=== PATIENT | male | born 1955 | race Caucasian/White ===

== ENCOUNTER 2023-07-31 06:35 | Inpatient (IN) | payer MEDICARE, BC ==
[2023-07-29 16:41] LABS: BILIRUBIN,URINE NEGATIVE (Neg); CLARITY,URINE CLEAR (Clear); COLOR,URINE YELLOW (Yellow); GLUCOSE, URINE NEGATIVE (Neg); KETONES,URINE NEGATIVE (Neg); LEUKOCYTE ESTERASE ,URINE NEGATIVE (Neg); NITRITES, URINE NEGATIVE (Neg); OCCULT BLOOD,URINE NEGATIVE (Neg); PH,URINE 5.5 (4.8-8.0); PROTEIN,URINE NEGATIVE (Neg); UROBILINOGEN,URINE 0.2 E.U/dL (0.2-1.0)
[2023-07-29 16:47] LABS: BASOPHILS % (AUTO) 0.5 % (0-1); EOSINOPHILS # (AUTO) 0.2 X10'3 (0-0.9); LYMPHOCYTES # (AUTO) 1.2 X10'3 (1.1-4.8); LYMPHOCYTES % (AUTO) 16.6 % (21-51); MEAN CORPUSCULAR HEMOGLOBIN 29.3 PG (27.0-31.0); MEAN CORPUSCULAR HGB CONC 33.5 g/dL (33.0-36.5); MEAN CORPUSCULAR VOLUME 87.6 FL (78-98); MEAN PLATELET VOLUME 7.5 FL (7.4-10.4); MONOCYTES # (AUTO) 0.6 X10'3 (0-0.9); MONOCYTES % (AUTO) 8.1 % (2-12); NEUTROPHILS % (AUTO) 71.8 % (42-75); PRE OP HEMATOCRIT 50.3 % (42.0-52.0); PRE OP HEMOGLOBIN 16.9 g/dL (14.0-17.9); PRE OP PLATELET COUNT 235 X10'3 (140-440); RED BLOOD COUNT 5.75 X10'6 (4.70-6.10); RED CELL DISTRIBUTION WIDTH 16.5 % (11.5-14.5)
[2023-07-29 16:54] LABS: PRE OP PROTIME 10.6 SECONDS (9.0-12.0)
[2023-07-29 16:56] LABS: ALBUMIN 3.5 G/DL (3.4-5.0); ALKALINE PHOSPHATASE 82 IU/L (46-116); BLOOD UREA NITROGEN 25 MG/DL (7-18); CALCIUM 9.3 MG/DL (8.5-10.1); CHLORIDE 103 MMOL/L (99-107); CREATININE 1.04 MG/DL (0.60-1.10); PRE OP ALT 46 U/L (30-65); PRE OP ANION GAP 8 (8-16); PRE OP AST 24 U/L (10-37); PRE OP BILIRUB, TOTAL 0.6 MG/DL (0.0-1.0); PRE OP GLUCOSE 99 MG/DL (70-104); PRE OP POTASSIUM 3.9 MMOL/L (3.4-5.1); PRE OP SODIUM 141 MMOL/L (135-145); TOTAL CARBON DIOXIDE 30.3 MMOL/L (24-32); TOTAL PROTEIN 7.1 G/DL (6.4-8.2); eGFR 71 ML/MIN
[2023-07-29 16:57] LABS: UA COLLECTION TYPE CLN CATCH MIDSTREAM
[2023-07-31] VITALS (30 sets, daily range): BP systolic 99–153; BP diastolic 67–99; PULSE 58–80; RESP 12–22; TEMP 88.6–98.1; O2SAT 91–99
[~2023-07-31] VITALS: Ht 172.7 cm; Wt 88.9 kg
[~2023-07-31 06:35] MED LIST: APIX5TAB3 PO; ATOR-2 PO; DOCUMENT DATE & TIME OF BETA-BLOCKER PO ONE; LISI1TAB53 PO; SILD50TA PO; SOTA80TA PO; TEST200V33 IM; cefazolin 2gm/D5W 100mL 100 ML IV ONE; famotidine 20mg tablet PO ONE; ondansetron/PF 4mg/2ml inj IV PRN; ringers solution, lacted 1,000 ML IV SCH; vancomycin 1,500 MG in NS 300ml IV soln IV ONE
[2023-07-31] MEDS ORDERED: protamine sulfate 10mg/ml inj. ONE (06:52)
[2023-07-31] MEDS ORDERED: morphine 4 MG/ML inj SYRINge IV PRN (08:40)
[2023-07-31] MEDS ORDERED: meperidine/PF 25mg/ml syringe IV PRN ×3 (08:40)
[2023-07-31] MEDS ORDERED: proCHLORperazine 10 MG/2 ml inj IV PRN ×2 (08:40→10:35)
[2023-07-31] MEDS ORDERED: morphine 2 MG/ML inj. syringe IV PRN (08:40)
[2023-07-31] MEDS ORDERED: ringers solution, lacted 1,000 ML IV SCH (08:40)
[2023-07-31] MEDS ORDERED: ondansetron/PF 4mg/2ml inj IV PRN ×2 (08:40→10:35)
[2023-07-31] MEDS ORDERED: heparin 1,000 UNITS/NS 500ml 1,500 ML ONE (09:27)
[2023-07-31] MEDS ORDERED: iohexol 350 MG/ML 50ML vial IV ONE ×2 (09:27→09:55)
[2023-07-31] MEDS ORDERED: LIDOcaine 1% 30ml preserv. free vial ONE (09:27)
[2023-07-31] MEDS ORDERED: sevoflurane 250ml liquid IH ONE (09:34)
[2023-07-31] MEDS ORDERED: ePHEDrine 50MG/ML INJ. ONE (09:34)
[2023-07-31] MEDS ORDERED: fentaNYL/PF 50MCG/1 ML 2ML syringe ONE (09:38)
[2023-07-31] MEDS ORDERED: midazolam 1 mg/ML 2ml injection ONE (09:39)
[2023-07-31] MEDS ORDERED: propofol inj 20 ML IV ONE (09:41)
[2023-07-31] MEDS ORDERED: rocuronium 10mg/ml inj IV ONE (09:41)
[2023-07-31] MEDS ORDERED: heparin 1,000unit/ml 10ml vial 10 ML ONE (09:54)
[2023-07-31] MEDS ORDERED: ondansetron/PF 4mg/2ml inj ONE (10:31)
[2023-07-31] MEDS ORDERED: dexamethasone sod phosphate 4mg/ml inj. ONE (10:31)
[2023-07-31] MEDS ORDERED: sugammadex 200mg/2ml injection IV ONE (10:32)
[2023-07-31] MEDS ORDERED: potassium Cl 40MEQ/1/2NS 520ml 520 ML IV PRN (10:35)
[2023-07-31] MEDS ORDERED: magnesium 4gm in 100ml NS 100 ML IV PRN (10:35)
[2023-07-31] MEDS ORDERED: magnesium 2GM in 50ml NS 50 ML IV PRN (10:35)
[2023-07-31] MEDS ORDERED: potassium Cl 20 mEq SR tablet PO PRN (10:35)
[2023-07-31] MEDS ORDERED: potassium Cl 40MEQ/270ML bag 250 ML IV PRN (10:35)
[2023-07-31] MEDS ORDERED: potassium Cl 20mEq/100mL bag 100 ML IV PRN (10:35)
[2023-07-31] MEDS ORDERED: normal saline 1000ml 1,000 ML IV SCH (10:35)
[2023-07-31] MEDS ORDERED: acetaminophen 325mg tablet PO PRN (10:35)
[2023-07-31] MEDS ORDERED: potassium CL 10mEq/100ml bag 100 ML IV PRN (10:35)
[2023-07-31] MEDS ORDERED: pantoprazole 40mg Tablet.DR PO PRN (10:35)
[2023-07-31] MEDS ORDERED: hydrALAZINE 20mg/ml inj. IV PRN (10:35)
[2023-07-31] MEDS ORDERED: docusate sod 100mg capsule PO PRN (10:35)
[2023-07-31] MEDS ORDERED: diphenhydrAMINE 25mg capsule PO PRN (10:35)
[2023-07-31] MEDS ORDERED: ALPRAZolam 0.25mg tablet PO PRN (10:35)
[2023-07-31] MEDS ORDERED: labetalol 20mg/4ml (5mg/ml) syringe IV PRN (10:35)
[2023-07-31] MEDS: sotalol HCl 40mg (1/2 tablet) PO SCH (21:04)
[2023-07-31] MEDS: apixaban 5mg tablet PO SCH (21:05)
[2023-07-31] MEDS: sod chloride 0.9% 10ml flush syringe IV SCH (22:52)
[2023-08-01] VITALS (7 sets, daily range): BP systolic 96–153; BP diastolic 54–91; PULSE 63–97; RESP 13–27; TEMP 97.3–98.5; O2SAT 94–99
[2023-08-01] MEDS: sod chloride 0.9% 10ml flush syringe IV SCH ×3 (00:12→15:20)
[2023-08-01 07:11] LABS: BASOPHILS % (AUTO) 0.2 % (0-1); EOSINOPHILS % (AUTO) 0.1 % (0-6); HEMATOCRIT 46.6 % (42.0-52.0); HEMOGLOBIN 15.7 g/dl (14.0-17.9); LYMPHOCYTES # (AUTO) 0.8 X10'3 (1.1-4.8); LYMPHOCYTES % (AUTO) 8.2 % (21-51); MEAN CORPUSCULAR HEMOGLOBIN 29.3 PG (27.0-31.0); MEAN CORPUSCULAR HGB CONC 33.7 g/dL (33.0-36.5); MEAN PLATELET VOLUME 7.6 FL (7.4-10.4); MONOCYTES # (AUTO) 0.6 X10'3 (0-0.9); MONOCYTES % (AUTO) 6.4 % (2-12); NEUTROPHILS # (AUTO) 8.3 X10'3 (1.8-7.7); NEUTROPHILS % (AUTO) 85.1 % (42-75); PLATELET COUNT 200 X10'3 (140-440); RED BLOOD COUNT 5.36 X10'6 (4.70-6.10); RED CELL DISTRIBUTION WIDTH 16.4 % (11.5-14.5); WHITE BLOOD COUNT 9.8 X10'3 (4.5-11.0)
[2023-08-01 07:28] LABS: INR 1.1 INR; PROTHROMBIN TIME 11.3 SECONDS (9.0-12.0)
[2023-08-01 07:52] LABS: ALANINE AMINOTRANSFERASE 33 U/L (12-78); ALBUMIN/GLOBULIN RATIO 0.8 (1.1-1.5); ALKALINE PHOSPHATASE 65 IU/L (46-116); ANION GAP 10 (8-16); ASPARTATE AMINO TRANSFERASE 25 U/L (10-37); BILIRUBIN,TOTAL 0.8 MG/DL (0.1-1.0); BLOOD UREA NITROGEN 28 MG/DL (7-18); BUN/CREATININE RATIO 25.5 (10.0-20.0); CALCIUM 8.8 MG/DL (8.5-10.1); CHLORIDE 102 MMOL/L (99-107); GLUCOSE 139 MG/DL (70-104); MAGNESIUM 1.7 MG/DL (1.5-2.4); PRO BRAIN NATRIURETIC PEPTIDE 335 PG/ML (0-125); SODIUM 137 MMOL/L (135-145); TOTAL PROTEIN 6.7 G/DL (6.4-8.2); eCRCL 60 ML/MIN; eGFR 66 ML/MIN
[2023-08-01] MEDS ORDERED: lisinopril 20mg tablet PO SCH (08:00)
[2023-08-01] MEDS ORDERED: atorvastatin 20mg tablet PO SCH (08:00)
[2023-08-01] MEDS ORDERED: HYDROchlorothiazide 25mg tablet PO SCH (08:00)
[2023-08-01] MEDS: sotalol HCl 40mg (1/2 tablet) PO SCH (08:23)
[2023-08-01] MEDS: apixaban 5mg tablet PO SCH (08:24)
== END 2023-08-01 17:26 | disposition home or self-care (01) | DRG 274 ==
LOC: PAS IN 06:35 → PCU 3S 19:06
PROVIDERS: ADMIT Student in an Organized Health Care Education/Training Program; ATTEND Student in an Organized Health Care Education/Training Program
PROC: B24BZZ4 Ultrasonography of Heart with Aorta, Transesophageal (ICD-10-PCS; 2023-07-31)
PROC: 03HY32Z Insertion of Monitoring Device into Upper Artery, Percutaneous Approach (ICD-10-PCS; 2023-07-31)
PROC: 02L73DK Occlusion of Left Atrial Appendage with Intraluminal Device, Percutaneous Approach (ICD-10-PCS; principal; 2023-07-31 09:34)
DX: I48.0 Paroxysmal atrial fibrillation (principal); Z00.6 Encounter for examination for normal comparison and control in clinical research program; E78.5 Hyperlipidemia, unspecified; I10 Essential (primary) hypertension; Z86.73 Personal history of transient ischemic attack (TIA), and cerebral infarction without residual deficits; Z79.01 Long term (current) use of anticoagulants; Z88.8 Allergy status to other drugs, medicaments and biological substances
CPT/HCPCS: 33340; 36415; 71045; 71046; 76937; 80053; 81003; 82948; 83735; 83880; 85025; 85347; 85610; 85730; 86885; 86900; 86901; 86920; 87081; 93005; 93308; 93312; 93325; A4615; A4618; A6258; A6402; A6449; C1889; C1893; C1894; G0378; J0690; J1100; J1644; J2250; J2405; J2704; J2720; J3010; J3370; J3490; J7030; J7040; J7120; Q9967

== ENCOUNTER 2023-09-23 11:34 | Day surgery (SDC) | payer MEDICARE, BC ==
[~2023-09-23] VITALS: Ht 172.7 cm; Wt 88.7 kg
[2023-09-23] VITALS (14 sets, daily range): BP systolic 97–154; BP diastolic 63–108; PULSE 56–72; RESP 10–17; TEMP 98; O2SAT 95–98
[~2023-09-23 11:34] MED LIST changes: -DOCUMENT DATE & TIME OF BETA-BLOCKER PO ONE; -cefazolin 2gm/D5W 100mL 100 ML IV ONE; -famotidine 20mg tablet PO ONE; -ondansetron/PF 4mg/2ml inj IV PRN; -ringers solution, lacted 1,000 ML IV SCH; -vancomycin 1,500 MG in NS 300ml IV soln IV ONE
[2023-09-23] MEDS ORDERED: CALC-723 PO (12:43)
[2023-09-23] MEDS: fentaNYL/PF 50MCG/1 ML 2ML syringe IV ONE (12:44)
[2023-09-23] MEDS: normal saline 1000ml 1,000 ML IV PRN (12:44)
[2023-09-23] MEDS: MIDAZolam 1mg/ml 10ml vial IV ONE (12:44)
[2023-09-23 12:49] LABS: BASOPHILS # (AUTO) 0.1 X10'3 (0-0.2); BASOPHILS % (AUTO) 0.8 % (0-1); EOSINOPHILS # (AUTO) 0.2 X10'3 (0-0.9); EOSINOPHILS % (AUTO) 2.8 % (0-6); HEMATOCRIT 47.6 % (42.0-52.0); HEMOGLOBIN 15.9 g/dl (14.0-17.9); LYMPHOCYTES # (AUTO) 1.1 X10'3 (1.1-4.8); LYMPHOCYTES % (AUTO) 14.8 % (21-51); MEAN CORPUSCULAR HEMOGLOBIN 31.2 PG (27.0-31.0); MEAN CORPUSCULAR HGB CONC 33.5 g/dL (33.0-36.5); MEAN PLATELET VOLUME 7.8 FL (7.4-10.4); MONOCYTES # (AUTO) 0.7 X10'3 (0-0.9); MONOCYTES % (AUTO) 9.2 % (2-12); NEUTROPHILS # (AUTO) 5.5 X10'3 (1.8-7.7); NEUTROPHILS % (AUTO) 72.4 % (42-75); PLATELET COUNT 224 X10'3 (140-440); RED BLOOD COUNT 5.11 X10'6 (4.70-6.10); RED CELL DISTRIBUTION WIDTH 16.7 % (11.5-14.5); WHITE BLOOD COUNT 7.6 X10'3 (4.5-11.0)
[2023-09-23 12:55] LABS: ANION GAP 7 (8-16); BLOOD UREA NITROGEN 27 MG/DL (7-18); BUN/CREATININE RATIO 25.7 (10.0-20.0); CHLORIDE 103 MMOL/L (99-107); CREATININE 1.05 MG/DL (0.60-1.10); GLUCOSE 89 MG/DL (70-104); POTASSIUM 4.2 MMOL/L (3.5-5.1); SODIUM 139 MMOL/L (135-145); TOTAL CARBON DIOXIDE 29.1 MMOL/L (24-32)
[2023-09-23 12:56] LABS: ALBUMIN 3.8 G/DL (3.4-5.0); CALCIUM 8.7 MG/DL (8.5-10.1); eCRCL 63 ML/MIN; eGFR 70 ML/MIN
[2023-09-23 13:06] LABS: APTT 32 SECONDS (22-32); PROTHROMBIN TIME 10.8 SECONDS (9.0-12.0)
== END 2023-09-23 14:39 | disposition home or self-care (01) ==
LOC: SSTAY O 11:34
PROVIDERS: ATTEND Student in an Organized Health Care Education/Training Program
DX: Z45.09 Encounter for adjustment and management of other cardiac device (principal); I08.1 Rheumatic disorders of both mitral and tricuspid valves; I48.91 Unspecified atrial fibrillation; E78.5 Hyperlipidemia, unspecified; I10 Essential (primary) hypertension; Z86.73 Personal history of transient ischemic attack (TIA), and cerebral infarction without residual deficits; Z79.01 Long term (current) use of anticoagulants; Z79.899 Other long term (current) drug therapy
CPT/HCPCS: 36415; 80048; 85025; 85610; 85730; 93312; 93325; J2250; J3010; J7030; A4620